=== PATIENT | female | born 1950 | race Caucasian/White ===

== ENCOUNTER → 2017-01-22 | Outpatient (CLI) | payer MEDICARE, BC ==
[~2017-01-22] MED LIST: FLEXERIL10 MG PO; GABAPENTIN 600600 MG PO; METHOCARBAMOL750 M1 PO; MIRALAX17 GM/PACK PO; MORPHINE SULFA100 M1 PO; MORPHINE SULFA100 MG PO; MORPHINE SULFAT PO; MS CONTIN 100M100 MG PO; MS CONTIN60 MG PO; OXYCODONE HCL10 M1 PO; OXYCODONE HCL15 MG PO; OXYCODONE SR 4040 MG PO; REMERON15 MG PO; TIZANIDINE HCL 44 MG PO; VALIUM 10MG TAB10 MG PO
--- NOTE | 2017-01-23 09:37 | RADIOLOGY REPORT PS360 ---
MRI-C-SPINE W/O HISTORY: Neck pain with bilateral hand pain and burning BACK PAIN ORDERING PHYSICIAN: Nigel Olvera MD PATIENT AGE: 66 years COMPARISON: None TECHNIQUE: Standard multiplanar multiecho sequences are performed without contrast. 3-D MIP and myelographic images are also rendered and reviewed FINDINGS: There is normal alignment. The craniocervical junction has an unremarkable appearance. Unremarkable signal intensity of the cervical cord C2-C3, C3-C4, and C4-C5 have an unremarkable MRI appearance. C5-C6: Status post anterior cervical disc fusion. Artifact is present from the metallic hardware. No canal stenosis or foraminal stenosis evident at this region. C6-C7 and C7-T1 have an unremarkable appearance. Incidental note is made of mildly enlarged thyroid gland with bilateral thyroid nodules IMPRESSION: 1. Status post anterior cervical disc fusion at C5-C6. 2. Otherwise negative MRI of the cervical spine 3. Mildly enlarged thyroid gland with bilateral thyroid nodules which are less than 1.5 cm
== END ==
LOC: RAD 12-07 10:00
DX: M54.2 Cervicalgia (principal)